=== PATIENT | male | born 1995 | race Caucasian/White ===

== ENCOUNTER 2024-04-21 06:53 | Emergency (ER) | payer OTHER ==
[2024-04-21] MEDS ORDERED: Ketorolac Tromethamine 30 MG (1 mL) VIAL ONE (07:24)
[2024-04-21 08:09] LABS: #Basophils 0.02 10x3/uL (0.0-0.2); #Eosinophils 0.01 10x3/uL (0.0-0.5); #Monocytes 0.66 10x3/uL (0.0-1.1); #Neutrophils 11.09 10x3/uL (1.5-8.4); %Basophils 0.2 % (0.0-2.0); %Eosinophils 0.1 % (0.0-6.0); %Lymphocytes 2.4 % (18.0-47.0); %Monocytes 5.5 % (0.0-10.0); %Neutrophils 91.5 % (40.0-75.0); Hemoglobin 14.5 g/dL (13.5-17.5); Mean Corpuscular HGB CONC 34.5 g/dL (32.0-36.0); Mean Corpuscular Hemoglobin 30.4 pg (27.0-33.0); Mean Corpuscular Volume 88.1 fL (81.2-95.1); Mean Platelet Volume 9.9 fL (7.4-10.4); Platelet Count 279 10x3/uL (150-450); RBC Distribution Width 12.1 % (11.5-14.5); Red Blood Cell (RBC) Count 4.77 10x6/uL (4.32-5.72); White Blood Cell (WBC) Count 12.1 10x3/uL (3.5-10.5)
[2024-04-21 08:10] LABS: ALT (SGPT) 39 U/L (8-55); AST (SGOT) 68 U/L (5-34); Albumin 4.3 g/dL (3.5-5.0); Alkaline Phosphatase 83 U/L (40-110); Anion Gap 15 mmol/L (10-20); BUN (Urea Nitrogen) 13 mg/dL (8.9-20.6); Bilirubin, Total 0.8 mg/dL (0.2-1.2); CK (CPK) 1966 U/L (30-200); Calc. Creatinine Clearance 0 mL/min (70-130); Calcium 9.2 mg/dL (7.8-10.44); Carbon Dioxide 24 mmol/L (22-29); Chloride 105 mmol/L (98-107); Estimated GFR 89; Globulin 2.8 g/dL (2.4-3.5); Glucose 130 mg/dL (70-105); Potassium 4.2 mmol/L (3.5-5.1); Protein, Total 7.1 g/dL (6.0-8.3); Sodium 140 mmol/L (136-145)
[2024-04-21] MEDS ORDERED: Ondansetron PF 4 MG/2 ML Vial ONE (09:49)
== END 2024-04-21 10:02 | disposition home or self-care (01) ==
LOC: CSHERS 06:53
DX: A08.4 Viral intestinal infection, unspecified (principal)
CPT/HCPCS: 36415; 80053; 82550; 85025; 96361; 96374; 96375; J1885; J2405